=== PATIENT | male | born 1935 | race Caucasian/White ===

== ENCOUNTER 2017-10-15 09:52 | Inpatient (IN) | payer MEDICARE, OTHER ==
[2017-10-15] MEDS ORDERED: Sodium Chloride 0.9% 10 ML Syringe FLUSH PRN (10:03)
[2017-10-15 10:35] LABS: CHLORIDE,CL 105 mmol/L (98-107); SODIUM,NA 143 mmol/L (136-145)
--- NOTE | 2017-10-15 13:06 | EDM.PDOC ---
ED HPI GENERAL MEDICAL PROBLEM - General Chief Complaint: General Stated Complaint: FALL Time Seen by Provider: 10/15/17 10:06 Source of Information: Reports: Patient, Family History Limitations: Reports: No Limitations - History of Present Illness INITIAL COMMENTS - FREE TEXT/NARRATIVE: Patient was staying at local motel last night when he tried to use the bathroom. Unable to get up from the low toilet placed in the bathroom. Slid forward onto knees when he attempted to stand. Unable to get up on his own and ended up laying on the floor of the bathroom for about 6 hours until he was discovered this morning. He did have family members staying in a nearby room. Patient complains that both legs are stiff/sore from laying on ground all night. One leg was resting atop of the other. He noted more swelling that usual in the lower leg area when EMS crew sat him up. Patient feels that the swelling has already improved since arriving to ER. Denies trauma and other new complaints. Patient's plan was to move into the [facility] today and was to reside on the basic care side. He usually gets around well using his walker and was able to keep his apartment tidy as well as perform his ADLs. Bilateral Knee Pain Score (Numeric/FACES): 3 - Related Data Allergies Allergy/AdvReac Type Severity Reaction Status Date / Time No Known Allergies Allergy Verified 10/15/17 10:52 Home Meds: Home Meds Acetaminophen [Tylenol Extra Strength] 1,000 mg PO Q4H 10/15/17 [History] Ascorbic Acid [Vitamin C with Judit Hips] 500 mg PO BID 10/15/17 [History] Betamethasone/Clotrimazole [Lotrisone] 1 applic TOP ASDIRECTED 10/15/17 [History ] Bumetanide 1 mg PO BID 10/15/17 [History] Camphor/Menthol [Mentholatum Oint] 1 applic TP ASDIRECTED PRN 10/15/17 [History] Docusate Sodium [Colace] 100 mg PO DAILY 10/15/17 [History] Ferrous Sulfate [Iron] 325 mg PO DAILY 10/15/17 [History] Fluocinonide [Lidex 0.05% Crm] 1 applic TOP BID PRN 10/15/17 [History] Gabapentin [Neurontin] 300 mg PO TID 10/15/17 [History] Meclizine [Antivert] 25 mg PO Q6H PRN 10/15/17 [History] Non-Formulary Medication [NF Drug] 1 applic TOP ASDIRECTED PRN 10/15/17 [History ] Non-Formulary Medication [NF Drug] 1 each PO Q12H 10/15/17 [History] Olopatadine HCl 1 drop EYEBOTH DAILY 10/15/17 [History] Potassium Chloride [Klor-Con M20] 20 meq PO DAILY 10/15/17 [History] Pravastatin [Pravachol] 10 mg PO BEDTIME 10/15/17 [History] Warfarin [Coumadin] 5 mg PO MO@18 10/15/17 [History] Warfarin [Coumadin] 7.5 mg PO DAILY@18 10/15/17 [History] glyBURIDE [Glyburide] 5 mg PO DAILY 10/15/17 [History] metOLazone [Metolazone] 0.5 tab PO DAILY PRN 10/15/17 [History] metroNIDAZOLE [Metronidazole] 1 applic TP DAILY PRN 10/15/17 [History] predniSONE [Prednisone] 5 mg PO DAILY 10/15/17 [History] Past Medical History HEENT History: Reports: Cataract, Hard of Hearing Cardiovascular History: Reports: Afib, Blood Clots/VTE/DVT, Heart Failure ( grade 1 diastolic dysfunction, hypoxia), High Cholesterol, Hypertension, Pulmonary Hypertension, Other (See Below) (edema) Respiratory History: Reports: PE, Sleep Apnea, SOB, Other (See Below) (hypoxia) Gastrointestinal History: Reports: Other (See Below) (Dysphagia, oropharyngeal phase) Musculoskeletal History: Reports: Back Pain, Chronic, Osteoarthritis, Other ( See Below) (degenerative disc disease, right sided sciatica) Neurological History: Reports: Head Trauma, Vertigo Psychiatric History: Reports: Anxiety Endocrine/Metabolic History: Reports: Diabetes, Type II, Obesity/BMI 30+ Hematologic History: Reports: B12 Deficiency, Iron Deficiency Immunologic History: Reports: Other (See Below) (PMR) Dermatologic History: Reports: Venous Stasis Dermatitis, Other (See Below) ( Rosacea, mild pressure changes in skin of gluteal cleft nipple pain) - Past Surgical History GI Surgical History: Reports: Hernia, Abdominal ED ROS GENERAL - Review of Systems Review Of Systems: See Below Constitutional: Reports: No Symptoms HEENT: Reports: Glasses Respiratory: Reports: Shortness of Breath (chronic SOB, no acute change per patient). Denies: Pleuritic Chest Pain, Cough, Sputum, Hemoptysis Cardiovascular: Reports: Edema (chronic, see HPI). Denies: Chest Pain, Lightheadedness, Orthopnea, Palpitations, Syncope GI/Abdominal: Reports: Constipation (chronic issues), Diarrhea (occasional loose stools). Denies: Abdominal Pain, Hematemesis, Hematochezia, Nausea, Stool Incontinence : Reports: No Symptoms Musculoskeletal: Reports: Leg Pain (see HPI) Skin: Reports: Bruising Neurological: Reports: No Symptoms (denies acute changes) Psychiatric: Reports: No Symptoms ED EXAM, GENERAL - Physical Exam Exam: See Below Exam Limited By: No Limitations General Appearance: Alert, No Apparent Distress, Anxious, Obese Eye Exam: Bilateral Eye: EOMI, PERRL Ears: Normal External Exam Nose: No: Nasal Deformity, Nasal Swelling, Nasal Drainage Throat/Mouth: Normal Lips, Normal Voice, No Airway Compromise, Other (Patient wears dentures) Head: Atraumatic, Normocephalic Neck: Supple, Non-Tender, Full Range of Motion. No: Lymphadenopathy (L), Lymphadenopathy (R) Respiratory/Chest: No Respiratory Distress, No Accessory Muscle Use, Chest Non- Tender, Decreased Breath Sounds (throughout). No: Crackles, Rales, Rhonchi, Wheezing, Stridor, Accessory Muscle Use Cardiovascular: Regular Rate, Rhythm, No Murmur Peripheral Pulses: 2+: Radial (L), Radial (R) GI/Abdominal: Normal Bowel Sounds, Soft, Non-Tender, No Distention, Hernia ( ventral hernia), Mass (area of firmness in surgical scar adjacent to umbilicus on right) (Male) Exam: Other (Some areas of erythema and skin breakdown noted around groin/scrotum as and extends around pannus. ). No: Urethral Discharge Rectal (Males) Exam: Deferred Back Exam: No: CVA Tenderness (L), CVA Tenderness (R), Muscle Spasm, Paraspinal Tenderness, Vertebral Tenderness Extremities: Pedal Edema (significant edema bilateral lower legs with scattered fluid blisters noted, no obvious focal tenderness noted). No: Increased Warmth , Mottled, Pallor Neurological: Alert, Oriented, Normal Cognition, Other (appears to have equal strength bilaterally) Psychiatric: Anxious (mildly) Skin Exam: Warm, Dry, Ecchymosis (scattered, forearms/hands), Other (small skin tear left forearm) Course - Vital Signs Last Recorded V/S: Last Vital Signs Temp 36.8 C 10/15/17 09:54 Pulse 97 10/15/17 10:04 Resp 20 10/15/17 10:04 BP 151/85 H 10/15/17 10:04 Pulse Ox 90 L 10/15/17 10:04 - Orders/Labs/Meds Orders: Active Orders 24 hr Category Date Time Status Cardiac Monitoring [RC] . DIRECTED Care 10/15/17 10:03 Active Johnson Catheter Insertion [Insert Urinary Catheter] [OM. Care 10/15/17 11:45 Ordered PC] Q24H Urinary Catheter Assessment [RC] ASDIRECTED Care 10/15/17 11:44 Active Chest 1V Frontal [CR] Stat Exams 10/15/17 10:08 Taken URINALYSIS W/MICROSCOPIC [UA W/MICROSCOPIC] [URIN] Stat Lab 10/15/17 10:10 Ordered Sodium Chloride 0.9% [Saline Flush] Med 10/15/17 10:03 Active 10 ml FLUSH ASDIRECTED PRN Saline Lock Insert [OM.PC] Routine Oth 10/15/17 10:03 Ordered Medication Orders Sodium Chloride (Saline Flush) 10 ml FLUSH ASDIRECTED PRN PRN Reason: Keep Vein Open Labs: Laboratory Tests 10/15/17 10/15/17 10/15/17 Range/Units 10:00 10:00 10:00 WBC 13.6 H (4.0-10.2) K/uL RBC 5.44 H (4.33-5.41) M/uL Hgb 14.5 (13.1-16.8) g/dL Hct 47.6 (39.0-49.0) % MCV 87.5 (84.0-98.0) fL MCH 26.7 L (28.2-33.3) pg MCHC 30.5 L (31.7-36.0) g/dL RDW 22.2 H (11.2-14.1) % Plt Count 215 (150-350) K/uL Neut % (Auto) 88.3 H (45.0-80.0) % Lymph % (Auto) 1.4 L (10.0-50.0) % [place] % (Auto) 10.2 (2.0-14.0) % Eos % (Auto) 0.0 (0.0-5.0) % Baso % (Auto) 0.1 (0.0-2.0) % Neut # (Auto) 12.04 H (1.40-7.00) K/uL Lymph # (Auto) 0.19 L (0.50-3.50) K/uL [place] # (Auto) 1.39 H (0.00-1.00) K/uL Eos # (Auto) 0.00 (0.00-0.50) K/uL Baso # (Auto) 0.02 (0.00-0.20) K/uL PT 12.5 H (9.8-11.7) SEC INR 1.2 Sodium 143 (136-145) mmol/L Potassium 3.9 (3.5-5.1) mmol/L Chloride 105 (98-107) mmol/L Carbon Dioxide 28.4 (21.0-32.0) mmol/L BUN 13 (7-18) mg/dL Creatinine 0.79 (0.51-1.17) mg/dL Est Cr Clr Drug Dosing 70.85 mL/min Estimated GFR (MDRD) > 60 mL/min Glucose 141 H (74-106) mg/dL Calcium 8.7 (8.5-10.1) mg/dL Total Bilirubin 2.6 H (0.2-1.0) mg/dL AST 101 H (15-37) U/L ALT 28 (12-78) U/L Alkaline Phosphatase 87 (46-116) IU/L NT-Pro-B Natriuret Pep 9423 H (0-125) pg/mL Total Protein 6.7 (6.4-8.2) g/dL Albumin 3.2 L (3.4-5.0) g/dL Specimen Type Urine Color Urine Appearance Urine pH (5.0-9.0) Ur Specific [place] (1.005-1.030) Urine Protein (NEGATIVE) mg/dL Urine Glucose (UA) (NEGATIVE) mg/dL Urine Ketones (NEGATIVE) mg/dL Urine Occult Blood (NEGATIVE) Urine Nitrite (NEGATIVE) Urine Bilirubin (NEGATIVE) Urine Urobilinogen (0.2-1.0) E.U./dL Ur Leukocyte Esterase (NEGATIVE) Urine RBC /HPF Urine WBC /HPF Ur Epithelial Cells /LPF Urine Bacteria (NONE TO FEW) /HPF 10/15/17 Range/Units 10:10 WBC (4.0-10.2) K/uL RBC (4.33-5.41) M/uL Hgb (13.1-16.8) g/dL Hct (39.0-49.0) % MCV (84.0-98.0) fL MCH (28.2-33.3) pg MCHC (31.7-36.0) g/dL RDW (11.2-14.1) % Plt Count (150-350) K/uL Neut % (Auto) (45.0-80.0) % Lymph % (Auto) (10.0-50.0) % [place] % (Auto) (2.0-14.0) % Eos % (Auto) (0.0-5.0) % Baso % (Auto) (0.0-2.0) % Neut # (Auto) (1.40-7.00) K/uL Lymph # (Auto) (0.50-3.50) K/uL [place] # (Auto) (0.00-1.00) K/uL Eos # (Auto) (0.00-0.50) K/uL Baso # (Auto) (0.00-0.20) K/uL PT (9.8-11.7) SEC INR Sodium (136-145) mmol/L Potassium (3.5-5.1) mmol/L Chloride (98-107) mmol/L Carbon Dioxide (21.0-32.0) mmol/L BUN (7-18) mg/dL Creatinine (0.51-1.17) mg/dL Est Cr Clr Drug Dosing mL/min Estimated GFR (MDRD) mL/min Glucose (74-106) mg/dL Calcium (8.5-10.1) mg/dL Total Bilirubin (0.2-1.0) mg/dL AST (15-37) U/L ALT (12-78) U/L Alkaline Phosphatase (46-116) IU/L NT-Pro-B Natriuret Pep (0-125) pg/mL Total Protein (6.4-8.2) g/dL Albumin (3.4-5.0) g/dL Specimen Type Urinvoid Urine Color Dark yellow Urine Appearance Clear Urine pH 7.0 (5.0-9.0) Ur Specific [place] 1.020 (1.005-1.030) Urine Protein 30 H (NEGATIVE) mg/dL Urine Glucose (UA) Negative (NEGATIVE) mg/dL Urine Ketones 40 H (NEGATIVE) mg/dL Urine Occult Blood Large H (NEGATIVE) Urine Nitrite Negative (NEGATIVE) Urine Bilirubin Small H (NEGATIVE) Urine Urobilinogen 1.0 (0.2-1.0) E.U./dL Ur Leukocyte Esterase Negative (NEGATIVE) Urine RBC 20-30 H /HPF Urine WBC 0-5 /HPF Ur Epithelial Cells Rare /LPF Urine Bacteria Few (NONE TO FEW) /HPF Meds: Medications Generic Name Dose Route Start Last Admin Trade Name Freq PRN Reason Stop Dose Admin Sodium Chloride 10 ml 10/15/17 10:03 Saline Flush FLUSH ASDIRECTED PRN Keep Vein Open - Radiology Interpretation Free Text/Narrative:: Changes consistent with CHF noted on xray. - Re-Assessments/Exams Free Text/Narrative Re-Assessment/Exam: Mild elevation of WBC. Decreased MCH, increased RDW. INR subtheraputic at 1.2 Glu 141 Bili 2.6, AST 101 ProBNP 9423 Alb 3.2 Patient's O2 sats on room air hovering around 80. Not on home O2 per patient. Several small areas of skin breakdown in edematous area lower legs showed increased erythema. Will cover for potential infection with Keflex. Will admit for CHF/hypoxia as well as continued observation of lower extremities given the fall last night/lying on floor. Diuresis planned. No evidence of compartment syndrome at this time. Will have PT and OT assess patient. Anticipate 3-4 days of inpatient stay. May need to go swingbed after discharge if he requires additional PT or admission to skilled bed at [facility]. If things go well, anticipate discharge and patient will be able to report to independent care side of [facility] as was originally planned. Call placed to [facility] and spoke to Julien. Patient is covered by Medicare and was able to chose between transfer to [facility] or staying here in [place]. Patient chose to be admitted here to our facility. Departure - Departure Time of Disposition: 13:30 Disposition: Admitted As Inpatient 65 Condition: Good Clinical Impression: Hypoxia Fall Qualifiers: Encounter type: initial encounter Qualified Code(s): W19.XXXA - Unspecified fall, initial encounter CHF (congestive heart failure) Qualifiers: Heart failure type: diastolic Heart failure chronicity: chronic Qualified Code( s): I50.32 - Chronic diastolic (congestive) heart failure - Discharge Information - Problem List & Annotations (1) Fall SNOMED Code(s): 8550187, 808595898 Code(s): W19.XXXA - UNSPECIFIED FALL, INITIAL ENCOUNTER Status: Acute Priority: High Current Visit: Yes Qualifiers: Encounter type: initial encounter Qualified Code(s): W19.XXXA - Unspecified fall, initial encounter (2) Hypoxia SNOMED Code(s): 104075536 Code(s): R09.02 - HYPOXEMIA Status: Chronic Priority: High Current Visit: Yes Annotation/Comment:: Chronic issue per available records. Will observe while inpatient and determine if home O2 at time of discharge is warrented. (3) CHF (congestive heart failure) SNOMED Code(s): 53316298 Code(s): I50.9 - HEART FAILURE, UNSPECIFIED Status: Chronic Priority: Medium Current Visit: Yes Annotation/Comment:: Has been worked up for this in past by primary provider in [facility]. Unknown when last echo. Qualifiers: Heart failure type: diastolic Heart failure chronicity: chronic Qualified Code(s): I50.32 - Chronic diastolic (congestive) heart failure (4) Diabetes SNOMED Code(s): 65855241 Code(s): E11.9 - TYPE 2 DIABETES MELLITUS WITHOUT COMPLICATIONS Status: Chronic Priority: Low Current Visit: No Qualifiers: Diabetes mellitus type: type 2 Diabetes mellitus halfway insulin use: without emt intermediate use Diabetes mellitus complication status: with unspecified complications Qualified Code(s): E11.8 - Type 2 diabetes mellitus with unspecified complications (5) Weakness SNOMED Code(s): 77014300 Code(s): R53.1 - WEAKNESS Status: Chronic Priority: Medium Current Visit: Yes (6) PMR (polymyalgia rheumatica) SNOMED Code(s): 99486642 Code(s): M35.3 - POLYMYALGIA RHEUMATICA Status: Chronic Priority: Low Current Visit: No (7) Edema extremities SNOMED Code(s): 829050084 Code(s): R60.0 - LOCALIZED EDEMA Status: Chronic Priority: Medium Current Visit: Yes (8) Stasis dermatitis of both legs SNOMED Code(s): 34736642 Code(s): I87.2 - VENOUS INSUFFICIENCY (CHRONIC) (PERIPHERAL) Status: Chronic Priority: Medium Current Visit: Yes Annotation/Comment:: Possible mild infections noted where skin has broken down in these areas. (9) Subtherapeutic anticoagulation SNOMED Code(s): 54976398 Code(s): Z51.81 - ENCOUNTER FOR THERAPEUTIC DRUG LEVEL MONITORING; Z79.01 - FPC (CURRENT) USE OF ANTICOAGULANTS Status: Acute Current Visit: Yes Annotation/Comment:: History of Afib/chronic anticoagulation. Uncertain if patient has been compliant with medication regimen. - Problem List Review Problem List Initiated/Reviewed/Updated: Yes - My Orders Last 24 Hours: My Active Orders 10/15/17 10:03 Cardiac Monitoring [RC] . DIRECTED Sodium Chloride 0.9% [Saline Flush] 10 ml FLUSH ASDIRECTED PRN Saline Lock Insert [OM.PC] Routine 10/15/17 10:08 Chest 1V Frontal [CR] Stat 10/15/17 10:10 URINALYSIS W/MICROSCOPIC [UA W/MICROSCOPIC] [URIN] Stat 10/15/17 11:44 Urinary Catheter Assessment [RC] ASDIRECTED 10/15/17 11:45 Johnson Catheter Insertion [Insert Urinary Catheter] [OM.PC] Q24H - Assessment/Plan Admission H&P: Please use this note as an admission H&P Last 24 Hours: My Active Orders 10/15/17 10:03 Cardiac Monitoring [RC] . DIRECTED Sodium Chloride 0.9% [Saline Flush] 10 ml FLUSH ASDIRECTED PRN Saline Lock Insert [OM.PC] Routine 10/15/17 10:08 Chest 1V Frontal [CR] Stat 10/15/17 10:10 URINALYSIS W/MICROSCOPIC [UA W/MICROSCOPIC] [URIN] Stat 10/15/17 11:44 Urinary Catheter Assessment [RC] ASDIRECTED 10/15/17 11:45 Johnson Catheter Insertion [Insert Urinary Catheter] [OM.PC] Q24H Assessment:: as above Plan: as above
[2017-10-15] MEDS ORDERED: Temazepam 15 MG Cap PO PRN (15:17)
[2017-10-15] MEDS ORDERED: Bisacodyl 5 MG Tab PO PRN (15:17)
[2017-10-15] MEDS ORDERED: METRONIDAZOLE TP PRN (15:24)
[2017-10-15] MEDS ORDERED: [UNRECOGNIZED DRUG - OTHER] TOP PRN (15:24)
[2017-10-15] MEDS ORDERED: Betamethasone Dipropionate/Clotrimazole 0.05-1% Crm 15 GM Tube TOP PRN (15:30)
[2017-10-15] MEDS ORDERED: Acetaminophen 325 MG Tab PO PRN (16:00)
[2017-10-15] MEDS ORDERED: Ondansetron 4 MG Tab.DIS PO PRN (16:00)
[2017-10-15] MEDS ORDERED: Meclizine 25 MG Tab PO PRN (16:00)
[2017-10-15] MEDS ORDERED: Ondansetron 4 MG/2 ML SDV IVPUSH PRN (16:00)
[2017-10-15] MEDS: Furosemide 20 MG/2 ML VIAL IVPUSH SCH (16:39)
[2017-10-15] MEDS: glyBURIDE 5 MG Tab PO SCH (17:18)
[2017-10-15] MEDS: Gabapentin 300 MG Cap PO SCH (17:19)
[2017-10-15] MEDS ORDERED: WARFARIN 7.5 MG PO SCH (18:00)
[2017-10-15] MEDS ORDERED: Warfarin 5 MG Tab PO SCH (18:00)
[2017-10-15] MEDS ORDERED: Warfarin 2.5 MG Tab PO SCH (18:00)
[2017-10-15] MEDS ORDERED: Calcium Polycarbophil 625 MG Tab PO SCH (20:00)
[2017-10-15] MEDS: Ketotifen 0.025% Ophth Soln 5 ML Bottle EYEBOTH SCH (21:00)
[2017-10-15] MEDS: Cephalexin 250 MG Cap PO SCH (21:00)
[2017-10-15] MEDS: Calcium Polycarbophil 625 MG Tab PO SCH (21:07)
[2017-10-16] MEDS: Ketotifen 0.025% Ophth Soln 5 ML Bottle EYEBOTH SCH (07:24)
[2017-10-16] MEDS: Gabapentin 300 MG Cap PO SCH ×2 (07:51→11:25)
[2017-10-16] MEDS: Cephalexin 250 MG Cap PO SCH ×2 (07:51→14:05)
[2017-10-16] MEDS: Furosemide 20 MG/2 ML VIAL IVPUSH SCH (07:52)
[2017-10-16] MEDS: Calcium Polycarbophil 625 MG Tab PO SCH (07:58)
[2017-10-16] MEDS ORDERED: Docusate Sodium 100 MG Cap PO SCH (08:00)
[2017-10-16] MEDS ORDERED: predniSONE 5 MG Tab PO SCH (08:00)
[2017-10-16] MEDS ORDERED: Potassium Chloride 20 MEQ Tab.ER PO SCH (08:00)
[2017-10-16] MEDS ORDERED: Ferrous Sulfate 325 MG Tab PO SCH (08:00)
[2017-10-16] MEDS: glyBURIDE 5 MG Tab PO SCH (08:01)
[2017-10-16 13:15] LABS: CHLORIDE,CL 108 mmol/L (98-107); SODIUM,NA 141 mmol/L (136-145)
[2017-10-16] MEDS ORDERED: Dextrose 5%-0.9% NaCl 1,000 ML IV SCH ×2 (14:00→16:00)
[2017-10-16] MEDS ORDERED: 50% Dextrose in Water 50 ML Syringe IVPUSH ONE (14:02)
--- NOTE | 2017-10-16 16:45 | PCM.PN ---
- General Info Date of Service: 10/16/17 Admission Dx/Problem (Free Text): Fall CHF A-fib Functional Status: Reports: New Symptoms (Unresponsive except for facial grimace with deep sternal rub) - Review of Systems General: Reports: No Symptoms HEENT: Reports: No Symptoms Pulmonary: Reports: No Symptoms Cardiovascular: Reports: No Symptoms Gastrointestinal: Reports: No Symptoms Genitourinary: Reports: No Symptoms Musculoskeletal: Reports: No Symptoms Skin: Reports: No Symptoms Neurological: Reports: No Symptoms Psychiatric: Reports: No Symptoms - Patient Data Vitals - Most Recent: Last Vital Signs Temp 97.4 F 10/16/17 16:00 Pulse 97 10/16/17 16:00 Resp 16 10/16/17 16:00 BP 88/52 L 10/16/17 16:00 Pulse Ox 93 L 10/16/17 16:00 Weight - Most Recent: 259 lb 14.4 oz I&O - Last 24 Hours: Intake & Output 10/16/17 10/16/17 10/16/17 06:59 14:59 22:59 Intake Total 840 Output Total 175 200 Balance -175 640 Lab Results Last 24 Hours: Laboratory Results - last 24 hr 10/15/17 10/15/17 10/16/17 Range/Units 17:15 21:16 06:21 WBC (4.0-10.2) K/uL RBC (4.33-5.41) M/uL Hgb (13.1-16.8) g/dL Hct (39.0-49.0) % MCV (84.0-98.0) fL MCH (28.2-33.3) pg MCHC (31.7-36.0) g/dL RDW (11.2-14.1) % Plt Count (150-350) K/uL Neut % (Auto) (45.0-80.0) % Lymph % (Auto) (10.0-50.0) % Starr % (Auto) (2.0-14.0) % Eos % (Auto) (0.0-5.0) % Baso % (Auto) (0.0-2.0) % Neut # (Auto) (1.40-7.00) K/uL Lymph # (Auto) (0.50-3.50) K/uL Starr # (Auto) (0.00-1.00) K/uL Eos # (Auto) (0.00-0.50) K/uL Baso # (Auto) (0.00-0.20) K/uL PT (9.8-11.7) SEC INR Sodium (136-145) mmol/L Potassium (3.5-5.1) mmol/L Chloride (98-107) mmol/L Carbon Dioxide (21.0-32.0) mmol/L BUN (7-18) mg/dL Creatinine (0.51-1.17) mg/dL Est Cr Clr Drug Dosing mL/min Estimated GFR (MDRD) mL/min Glucose (74-106) mg/dL POC Glucose 113 H 79 49 L* (65-110) mg/dl Calcium (8.5-10.1) mg/dL Total Bilirubin (0.2-1.0) mg/dL AST (15-37) U/L ALT (12-78) U/L Alkaline Phosphatase (46-116) IU/L Creatine Kinase (26-308) U/L Creatine Kinase Index (0.0-2.5) % CK-MB (CK-2) (0.00-3.60) ng/mL C-Reactive Protein (<=0.9) mg/dL NT-Pro-B Natriuret Pep (0-125) pg/mL Total Protein (6.4-8.2) g/dL Albumin (3.4-5.0) g/dL 10/16/17 10/16/17 10/16/17 Range/Units 06:58 11:30 12:44 WBC (4.0-10.2) K/uL RBC (4.33-5.41) M/uL Hgb (13.1-16.8) g/dL Hct (39.0-49.0) % MCV (84.0-98.0) fL MCH (28.2-33.3) pg MCHC (31.7-36.0) g/dL RDW (11.2-14.1) % Plt Count (150-350) K/uL Neut % (Auto) (45.0-80.0) % Lymph % (Auto) (10.0-50.0) % Starr % (Auto) (2.0-14.0) % Eos % (Auto) (0.0-5.0) % Baso % (Auto) (0.0-2.0) % Neut # (Auto) (1.40-7.00) K/uL Lymph # (Auto) (0.50-3.50) K/uL Starr # (Auto) (0.00-1.00) K/uL Eos # (Auto) (0.00-0.50) K/uL Baso # (Auto) (0.00-0.20) K/uL PT (9.8-11.7) SEC INR Sodium (136-145) mmol/L Potassium (3.5-5.1) mmol/L Chloride (98-107) mmol/L Carbon Dioxide (21.0-32.0) mmol/L BUN (7-18) mg/dL Creatinine (0.51-1.17) mg/dL Est Cr Clr Drug Dosing mL/min Estimated GFR (MDRD) mL/min Glucose (74-106) mg/dL POC Glucose 65 80 77 (65-110) mg/dl Calcium (8.5-10.1) mg/dL Total Bilirubin (0.2-1.0) mg/dL AST (15-37) U/L ALT (12-78) U/L Alkaline Phosphatase (46-116) IU/L Creatine Kinase (26-308) U/L Creatine Kinase Index (0.0-2.5) % CK-MB (CK-2) (0.00-3.60) ng/mL C-Reactive Protein (<=0.9) mg/dL NT-Pro-B Natriuret Pep (0-125) pg/mL Total Protein (6.4-8.2) g/dL Albumin (3.4-5.0) g/dL 10/16/17 10/16/17 10/16/17 Range/Units 12:45 12:45 12:45 WBC 10.7 H (4.0-10.2) K/uL RBC 5.09 (4.33-5.41) M/uL Hgb 13.3 (13.1-16.8) g/dL Hct 46.7 (39.0-49.0) % MCV 91.7 D (84.0-98.0) fL MCH 26.1 L (28.2-33.3) pg MCHC 28.5 L (31.7-36.0) g/dL RDW 22.4 H (11.2-14.1) % Plt Count 164 (150-350) K/uL Neut % (Auto) 86.1 H (45.0-80.0) % Lymph % (Auto) 4.0 L (10.0-50.0) % Starr % (Auto) 9.6 (2.0-14.0) % Eos % (Auto) 0.1 (0.0-5.0) % Baso % (Auto) 0.2 (0.0-2.0) % Neut # (Auto) 9.23 H (1.40-7.00) K/uL Lymph # (Auto) 0.43 L (0.50-3.50) K/uL Starr # (Auto) 1.03 H (0.00-1.00) K/uL Eos # (Auto) 0.01 (0.00-0.50) K/uL Baso # (Auto) 0.02 (0.00-0.20) K/uL PT 12.6 H (9.8-11.7) SEC INR 1.2 Sodium 141 (136-145) mmol/L Potassium 4.3 (3.5-5.1) mmol/L Chloride 108 H (98-107) mmol/L Carbon Dioxide 31.4 (21.0-32.0) mmol/L BUN 13 (7-18) mg/dL Creatinine 0.91 (0.51-1.17) mg/dL Est Cr Clr Drug Dosing 61.51 mL/min Estimated GFR (MDRD) > 60 mL/min Glucose 73 L (74-106) mg/dL POC Glucose (65-110) mg/dl Calcium 8.1 L (8.5-10.1) mg/dL Total Bilirubin 1.2 H (0.2-1.0) mg/dL AST 179 H (15-37) U/L ALT 46 (12-78) U/L Alkaline Phosphatase 67 (46-116) IU/L Creatine Kinase (26-308) U/L Creatine Kinase Index (0.0-2.5) % CK-MB (CK-2) (0.00-3.60) ng/mL C-Reactive Protein 10.3 H (<=0.9) mg/dL NT-Pro-B Natriuret Pep 7783 H (0-125) pg/mL Total Protein 5.5 L (6.4-8.2) g/dL Albumin 1.9 L (3.4-5.0) g/dL 10/16/17 10/16/17 10/16/17 Range/Units 12:45 13:59 14:37 WBC (4.0-10.2) K/uL RBC (4.33-5.41) M/uL Hgb (13.1-16.8) g/dL Hct (39.0-49.0) % MCV (84.0-98.0) fL MCH (28.2-33.3) pg MCHC (31.7-36.0) g/dL RDW (11.2-14.1) % Plt Count (150-350) K/uL Neut % (Auto) (45.0-80.0) % Lymph % (Auto) (10.0-50.0) % Starr % (Auto) (2.0-14.0) % Eos % (Auto) (0.0-5.0) % Baso % (Auto) (0.0-2.0) % Neut # (Auto) (1.40-7.00) K/uL Lymph # (Auto) (0.50-3.50) K/uL Starr # (Auto) (0.00-1.00) K/uL Eos # (Auto) (0.00-0.50) K/uL Baso # (Auto) (0.00-0.20) K/uL PT (9.8-11.7) SEC INR Sodium (136-145) mmol/L Potassium (3.5-5.1) mmol/L Chloride (98-107) mmol/L Carbon Dioxide (21.0-32.0) mmol/L BUN (7-18) mg/dL Creatinine (0.51-1.17) mg/dL Est Cr Clr Drug Dosing mL/min Estimated GFR (MDRD) mL/min Glucose (74-106) mg/dL POC Glucose 59 L 98 (65-110) mg/dl Calcium (8.5-10.1) mg/dL Total Bilirubin (0.2-1.0) mg/dL AST (15-37) U/L ALT (12-78) U/L Alkaline Phosphatase (46-116) IU/L Creatine Kinase 2738 H (26-308) U/L Creatine Kinase Index 0.4 (0.0-2.5) % CK-MB (CK-2) 12.00 H* (0.00-3.60) ng/mL C-Reactive Protein (<=0.9) mg/dL NT-Pro-B Natriuret Pep (0-125) pg/mL Total Protein (6.4-8.2) g/dL Albumin (3.4-5.0) g/dL 10/16/17 Range/Units 15:35 WBC (4.0-10.2) K/uL RBC (4.33-5.41) M/uL Hgb (13.1-16.8) g/dL Hct (39.0-49.0) % MCV (84.0-98.0) fL MCH (28.2-33.3) pg MCHC (31.7-36.0) g/dL RDW (11.2-14.1) % Plt Count (150-350) K/uL Neut % (Auto) (45.0-80.0) % Lymph % (Auto) (10.0-50.0) % Starr % (Auto) (2.0-14.0) % Eos % (Auto) (0.0-5.0) % Baso % (Auto) (0.0-2.0) % Neut # (Auto) (1.40-7.00) K/uL Lymph # (Auto) (0.50-3.50) K/uL Starr # (Auto) (0.00-1.00) K/uL Eos # (Auto) (0.00-0.50) K/uL Baso # (Auto) (0.00-0.20) K/uL PT (9.8-11.7) SEC INR Sodium (136-145) mmol/L Potassium (3.5-5.1) mmol/L Chloride (98-107) mmol/L Carbon Dioxide (21.0-32.0) mmol/L BUN (7-18) mg/dL Creatinine (0.51-1.17) mg/dL Est Cr Clr Drug Dosing mL/min Estimated GFR (MDRD) mL/min Glucose (74-106) mg/dL POC Glucose 114 H (65-110) mg/dl Calcium (8.5-10.1) mg/dL Total Bilirubin (0.2-1.0) mg/dL AST (15-37) U/L ALT (12-78) U/L Alkaline Phosphatase (46-116) IU/L Creatine Kinase (26-308) U/L Creatine Kinase Index (0.0-2.5) % CK-MB (CK-2) (0.00-3.60) ng/mL C-Reactive Protein (<=0.9) mg/dL NT-Pro-B Natriuret Pep (0-125) pg/mL Total Protein (6.4-8.2) g/dL Albumin (3.4-5.0) g/dL Med Orders - Current: Current Medications Acetaminophen (Tylenol) 650 mg PO Q4H PRN PRN Reason: Pain (Mild 1-3)/fever Last Admin: 10/16/17 07:59 Dose: 650 mg Betamethasone/Clotrimazole (Lotrisone) 1 gm TOP ASDIRECTED PRN PRN Reason: RASH Bisacodyl (Dulcolax) 5 mg PO DAILY PRN PRN Reason: Constipation Calcium Polycarbophil (Fibercon) 625 mg PO Q12HR [facility] Last Admin: 10/16/17 07:58 Dose: 625 mg Cephalexin (Keflex) 500 mg PO Q8H [facility] Last Admin: 10/16/17 14:05 Dose: Not Given Docusate Sodium (Colace) 100 mg PO DAILY [facility] Last Admin: 10/16/17 08:00 Dose: 100 mg Ferrous Sulfate (Ferrous Sulfate) 325 mg PO DAILY [facility] Last Admin: 10/16/17 08:00 Dose: 325 mg Furosemide (Lasix) 20 mg IVPUSH DAILY [facility] Last Admin: 10/16/17 07:52 Dose: 20 mg Gabapentin (Neurontin) 300 mg PO TID [facility] Last Admin: 10/16/17 11:25 Dose: 300 mg Dextrose/Sodium Chloride (Dextrose 5%-Normal Saline) 1,000 mls @ 75 mls/hr IV ASDIRECTED [facility] Stop: 10/17/17 03:19 Last Admin: 10/16/17 14:20 Dose: 75 mls/hr Dextrose/Sodium Chloride (Dextrose 5%-Normal Saline) 1,000 mls @ 150 mls/hr IV ASDIRECTED [facility] Stop: 10/16/17 18:01 Ketotifen Fumarate (Ketotifen 0.025% Ophth Soln) 1 ml EYEBOTH Q12HR [facility] Last Admin: 10/16/17 07:24 Dose: 1 drop Meclizine HCl (Antivert) 25 mg PO Q6H PRN PRN Reason: Dizziness Metronidazole [ Metronidazole] Topical 1 applic TP DAILY PRN PRN Reason: skin irritation Blue Emu Oil Nf 1 each TOP ASDIRECTED PRN PRN Reason: as needed for skin care Ondansetron HCl (Zofran Odt) 4 mg PO Q6H PRN PRN Reason: Nausea/Vomiting Ondansetron HCl (Zofran) 4 mg IVPUSH Q6H PRN PRN Reason: Nausea/Vomiting Potassium Chloride (Klor-Con M20) 20 meq PO DAILY [facility] Last Admin: 10/16/17 07:58 Dose: 20 meq Prednisone (Prednisone) 5 mg PO DAILY [facility] Last Admin: 10/16/17 07:51 Dose: 5 mg Sodium Chloride (Saline Flush) 10 ml FLUSH ASDIRECTED PRN PRN Reason: Keep Vein Open Last Admin: 10/15/17 21:07 Dose: 10 ml Temazepam (Restoril) 15 mg PO BEDTIME PRN PRN Reason: Sleep Warfarin Sodium (Coumadin) 2.5 mg PO DAILY@1800 [facility] Last Admin: 10/15/17 17:18 Dose: 2.5 mg Warfarin Sodium (Coumadin) 5 mg PO DAILY@1800 [facility] Last Admin: 10/15/17 17:18 Dose: 5 mg Discontinued Medications Calcium Polycarbophil (Fibercon) 1 mg PO Q12HR [facility] Last Admin: 10/15/17 23:44 Dose: Not Given Dextrose/Water (Dextrose 50% In Water) 50 ml IVPUSH ONETIME ONE Stop: 10/16/17 14:03 Last Admin: 10/16/17 14:14 Dose: 50 ml Glyburide (Micronase) 5 mg PO DAILY [facility] Last Admin: 10/16/17 08:01 Dose: 5 mg - Exam Quality Assessment: Supplemental Oxygen General: Obtunded Neck: Trachea Midline Lungs: Decreased Breath Sounds Cardiovascular: Irregular Rhythm GI/Abdominal Exam: Normal Bowel Sounds, Soft (Male) Exam: Deferred Extremities: Pedal Edema Skin: Warm, Dry, Intact Neurological: Other (Unresponsive except for facial grimace with deep sternal rub.) Psy/Mental Status: Other (Unresponsive) EKG INTERPRETATION EKG Date: 10/16/17 Rhythm: Other (sinus rhythm with 1st degree AV block and occ PVC's) [place]: LAD-Left [place] Deviation P-Wave: Present Comparison: NA - No Prior EKG - Problem List Review Problem List Initiated/Reviewed/Updated: Yes - My Orders Last 24 Hours: My Active Orders 10/16/17 14:00 Dextrose 5%-0.9% NaCl [Dextrose 5%-Normal Saline] 1,000 ml IV ASDIRECTED 10/16/17 14:30 Accu Check [Blood Glucose Check, Bedside] [RC] ONETIME 10/16/17 14:47 EKG Documentation Completion [RC] ASDIRECTED 10/16/17 16:00 Dextrose 5%-Normal Saline @ 150 MLS/HR(1000ml) Dextrose 5%-0.9% NaCl [Dextrose 5 %-Normal Saline] 1,000 ml IV ASDIRECTED 10/16/17 16:18 Head wo Cont [CT] Routine 10/16/17 16:35 Communication Order [RC] STAT 10/17/17 05:11 C-REACTIVE PROTEIN [CHEM] AM CK W CKMB [CHEM] Routine TROPONIN I [CHEM] Routine TSH ULTRASENSITIVE [CHEM] Routine 10/18/17 05:11 C-REACTIVE PROTEIN [CHEM] AM - Plan Plan:: 10-16-17 Paula Alva PA-C Patient has deteriorated over the course of the afternoon. Hypoglycemia noted and glyburide had been DC'd, been very lethargic with a BS of low 50's and was given D50W and sugars improved and mental status briefly improved. BP low and IV D5NS had been started but BP continued to drop and patient became unresponsive except for facial grimace to very deep sternal rub. Called daughter to report decline in condition and she agrees with transfer to a higher level of care. Woods contacted via the [facility] [employer] system and he is accepted for a direct admit, I spoke with Adan Crocker and Teresa. They did want IV fluid bolused for one liter. Head CT scan done while arrangements were being made for transfer. Dayron Simon also notified.
--- NOTE | 2017-10-16 16:56 | PCM.DCSUM1 ---
Discharge Summary - Hospital Course HPI Initial Comments: Patient was admitted yesterday after initial evaluation in the ER, after family found on the floor in motel room with h/o laying on the floor for approximately six hours after a fall. Diagnosis: Stroke: No - Discharge Data Discharge Date: 10/16/17 Discharge Disposition: DC/Tfer to Acute Hospital 02 Condition: Poor - Patient Summary/Data Consults: Consultations 10/15/17 15:17 OT Evaluation and Treatment [CONS] Routine PT Evaluation and Treatment [CONS] Routine Hospital Course: On this day after admission patient was sore this morning but was out of bed with assist of lift and could stand and was conversant. C/o "sore", especially back and butt pain but had denied CP. He was relatively hypoglycemic and glyburide was DC'd. BS even lower this afternoon and D50W given. IV fluids started for hypotension, however BP continued to drop as well as level of consciousness. On my exam he was essentially unresponsive to me, with the exception of a facial grimace with deep sternal rub and the decision was made to transfer to a higher level of care. - Patient Instructions Diet: NPO - Discharge Plan *PRESCRIPTION DRUG MONITORING PROGRAM REVIEWED*: Not Applicable *COPY OF PRESCRIPTION DRUG MONITORING REPORT IN PATIENT ALBARO: Not Applicable Home Medications: Home Meds Acetaminophen [Tylenol Extra Strength] 1,000 mg PO Q4H 10/15/17 [History] Ascorbic Acid [Vitamin C with Judit Hips] 500 mg PO BID 10/15/17 [History] Betamethasone/Clotrimazole [Lotrisone] 1 applic TOP ASDIRECTED PRN 10/15/17 [ History] Bumetanide 1 mg PO BID 10/15/17 [History] Camphor/Menthol [Mentholatum Oint] 1 applic TP ASDIRECTED PRN 10/15/17 [History] Docusate Sodium [Colace] 100 mg PO DAILY 10/15/17 [History] Ferrous Sulfate [Iron] 325 mg PO DAILY 10/15/17 [History] Fluocinonide [Lidex 0.05% Crm] 1 applic TOP BID PRN 10/15/17 [History] Gabapentin [Neurontin] 300 mg PO TID 10/15/17 [History] Meclizine [Antivert] 25 mg PO Q6H PRN 10/15/17 [History] Non-Formulary Medication [NF Drug] 1 applic TOP ASDIRECTED PRN 10/15/17 [History ] Non-Formulary Medication [NF Drug] 1 each PO Q12H 10/15/17 [History] Olopatadine HCl 1 drop EYEBOTH DAILY 10/15/17 [History] Potassium Chloride [Klor-Con M20] 20 meq PO DAILY 10/15/17 [History] Pravastatin [Pravachol] 10 mg PO BEDTIME 10/15/17 [History] Warfarin [Coumadin] 5 mg PO MO@18 10/15/17 [History] Warfarin [Coumadin] 7.5 mg PO DAILY@18 10/15/17 [History] glyBURIDE [Glyburide] 5 mg PO DAILY 10/15/17 [History] metOLazone [Metolazone] 0.5 tab PO DAILY PRN 10/15/17 [History] metroNIDAZOLE [Metronidazole] 1 applic TP DAILY PRN 10/15/17 [History] predniSONE [Prednisone] 5 mg PO DAILY 10/15/17 [History] Patient Handouts: Furosemide injection, Hypoxemia, Ondansetron injection, Cephalexin tablets or capsules, Heart Failure, [id number] Forms: ED Department Discharge Referrals: PCP,Unknown [Primary Care Provider] - - Discharge Summary/Plan Comment DC Time >30 min.: Yes Discharge Summary/Plan Comment: Daughter Shanthi contacted who agreed with transfer to a larger facility with a higher level of care. Contacted [facility] and after consult with Dr.'s Crocker and Teresa patient accepted for direct admit. - Patient Data Vitals - Most Recent: Last Vital Signs Temp 97.4 F 10/16/17 16:00 Pulse 97 10/16/17 16:00 Resp 16 10/16/17 16:00 BP 88/52 L 10/16/17 16:00 Pulse Ox 93 L 10/16/17 16:00 Weight - Most Recent: 259 lb 14.4 oz I&O - Last 24 hours: Intake & Output 10/16/17 10/16/17 10/16/17 06:59 14:59 22:59 Intake Total 840 Output Total 175 200 Balance -175 640 Lab Results - Last 24 hrs: Laboratory Results - last 24 hr 10/15/17 10/15/17 10/16/17 Range/Units 17:15 21:16 06:21 WBC (4.0-10.2) K/uL RBC (4.33-5.41) M/uL Hgb (13.1-16.8) g/dL Hct (39.0-49.0) % MCV (84.0-98.0) fL MCH (28.2-33.3) pg MCHC (31.7-36.0) g/dL RDW (11.2-14.1) % Plt Count (150-350) K/uL Neut % (Auto) (45.0-80.0) % Lymph % (Auto) (10.0-50.0) % [place] % (Auto) (2.0-14.0) % Eos % (Auto) (0.0-5.0) % Baso % (Auto) (0.0-2.0) % Neut # (Auto) (1.40-7.00) K/uL Lymph # (Auto) (0.50-3.50) K/uL [place] # (Auto) (0.00-1.00) K/uL Eos # (Auto) (0.00-0.50) K/uL Baso # (Auto) (0.00-0.20) K/uL PT (9.8-11.7) SEC INR Sodium (136-145) mmol/L Potassium (3.5-5.1) mmol/L Chloride (98-107) mmol/L Carbon Dioxide (21.0-32.0) mmol/L BUN (7-18) mg/dL Creatinine (0.51-1.17) mg/dL Est Cr Clr Drug Dosing mL/min Estimated GFR (MDRD) mL/min Glucose (74-106) mg/dL POC Glucose 113 H 79 49 L* (65-110) mg/dl Calcium (8.5-10.1) mg/dL Total Bilirubin (0.2-1.0) mg/dL AST (15-37) U/L ALT (12-78) U/L Alkaline Phosphatase (46-116) IU/L Creatine Kinase (26-308) U/L Creatine Kinase Index (0.0-2.5) % CK-MB (CK-2) (0.00-3.60) ng/mL C-Reactive Protein (<=0.9) mg/dL NT-Pro-B Natriuret Pep (0-125) pg/mL Total Protein (6.4-8.2) g/dL Albumin (3.4-5.0) g/dL 10/16/17 10/16/17 10/16/17 Range/Units 06:58 11:30 12:44 WBC (4.0-10.2) K/uL RBC (4.33-5.41) M/uL Hgb (13.1-16.8) g/dL Hct (39.0-49.0) % MCV (84.0-98.0) fL MCH (28.2-33.3) pg MCHC (31.7-36.0) g/dL RDW (11.2-14.1) % Plt Count (150-350) K/uL Neut % (Auto) (45.0-80.0) % Lymph % (Auto) (10.0-50.0) % [place] % (Auto) (2.0-14.0) % Eos % (Auto) (0.0-5.0) % Baso % (Auto) (0.0-2.0) % Neut # (Auto) (1.40-7.00) K/uL Lymph # (Auto) (0.50-3.50) K/uL [place] # (Auto) (0.00-1.00) K/uL Eos # (Auto) (0.00-0.50) K/uL Baso # (Auto) (0.00-0.20) K/uL PT (9.8-11.7) SEC INR Sodium (136-145) mmol/L Potassium (3.5-5.1) mmol/L Chloride (98-107) mmol/L Carbon Dioxide (21.0-32.0) mmol/L BUN (7-18) mg/dL Creatinine (0.51-1.17) mg/dL Est Cr Clr Drug Dosing mL/min Estimated GFR (MDRD) mL/min Glucose (74-106) mg/dL POC Glucose 65 80 77 (65-110) mg/dl Calcium (8.5-10.1) mg/dL Total Bilirubin (0.2-1.0) mg/dL AST (15-37) U/L ALT (12-78) U/L Alkaline Phosphatase (46-116) IU/L Creatine Kinase (26-308) U/L Creatine Kinase Index (0.0-2.5) % CK-MB (CK-2) (0.00-3.60) ng/mL C-Reactive Protein (<=0.9) mg/dL NT-Pro-B Natriuret Pep (0-125) pg/mL Total Protein (6.4-8.2) g/dL Albumin (3.4-5.0) g/dL 10/16/17 10/16/17 10/16/17 Range/Units 12:45 12:45 12:45 WBC 10.7 H (4.0-10.2) K/uL RBC 5.09 (4.33-5.41) M/uL Hgb 13.3 (13.1-16.8) g/dL Hct 46.7 (39.0-49.0) % MCV 91.7 D (84.0-98.0) fL MCH 26.1 L (28.2-33.3) pg MCHC 28.5 L (31.7-36.0) g/dL RDW 22.4 H (11.2-14.1) % Plt Count 164 (150-350) K/uL Neut % (Auto) 86.1 H (45.0-80.0) % Lymph % (Auto) 4.0 L (10.0-50.0) % [place] % (Auto) 9.6 (2.0-14.0) % Eos % (Auto) 0.1 (0.0-5.0) % Baso % (Auto) 0.2 (0.0-2.0) % Neut # (Auto) 9.23 H (1.40-7.00) K/uL Lymph # (Auto) 0.43 L (0.50-3.50) K/uL [place] # (Auto) 1.03 H (0.00-1.00) K/uL Eos # (Auto) 0.01 (0.00-0.50) K/uL Baso # (Auto) 0.02 (0.00-0.20) K/uL PT 12.6 H (9.8-11.7) SEC INR 1.2 Sodium 141 (136-145) mmol/L Potassium 4.3 (3.5-5.1) mmol/L Chloride 108 H (98-107) mmol/L Carbon Dioxide 31.4 (21.0-32.0) mmol/L BUN 13 (7-18) mg/dL Creatinine 0.91 (0.51-1.17) mg/dL Est Cr Clr Drug Dosing 61.51 mL/min Estimated GFR (MDRD) > 60 mL/min Glucose 73 L (74-106) mg/dL POC Glucose (65-110) mg/dl Calcium 8.1 L (8.5-10.1) mg/dL Total Bilirubin 1.2 H (0.2-1.0) mg/dL AST 179 H (15-37) U/L ALT 46 (12-78) U/L Alkaline Phosphatase 67 (46-116) IU/L Creatine Kinase (26-308) U/L Creatine Kinase Index (0.0-2.5) % CK-MB (CK-2) (0.00-3.60) ng/mL C-Reactive Protein 10.3 H (<=0.9) mg/dL NT-Pro-B Natriuret Pep 7783 H (0-125) pg/mL Total Protein 5.5 L (6.4-8.2) g/dL Albumin 1.9 L (3.4-5.0) g/dL 10/16/17 10/16/17 10/16/17 Range/Units 12:45 13:59 14:37 WBC (4.0-10.2) K/uL RBC (4.33-5.41) M/uL Hgb (13.1-16.8) g/dL Hct (39.0-49.0) % MCV (84.0-98.0) fL MCH (28.2-33.3) pg MCHC (31.7-36.0) g/dL RDW (11.2-14.1) % Plt Count (150-350) K/uL Neut % (Auto) (45.0-80.0) % Lymph % (Auto) (10.0-50.0) % [place] % (Auto) (2.0-14.0) % Eos % (Auto) (0.0-5.0) % Baso % (Auto) (0.0-2.0) % Neut # (Auto) (1.40-7.00) K/uL Lymph # (Auto) (0.50-3.50) K/uL [place] # (Auto) (0.00-1.00) K/uL Eos # (Auto) (0.00-0.50) K/uL Baso # (Auto) (0.00-0.20) K/uL PT (9.8-11.7) SEC INR Sodium (136-145) mmol/L Potassium (3.5-5.1) mmol/L Chloride (98-107) mmol/L Carbon Dioxide (21.0-32.0) mmol/L BUN (7-18) mg/dL Creatinine (0.51-1.17) mg/dL Est Cr Clr Drug Dosing mL/min Estimated GFR (MDRD) mL/min Glucose (74-106) mg/dL POC Glucose 59 L 98 (65-110) mg/dl Calcium (8.5-10.1) mg/dL Total Bilirubin (0.2-1.0) mg/dL AST (15-37) U/L ALT (12-78) U/L Alkaline Phosphatase (46-116) IU/L Creatine Kinase 2738 H (26-308) U/L Creatine Kinase Index 0.4 (0.0-2.5) % CK-MB (CK-2) 12.00 H* (0.00-3.60) ng/mL C-Reactive Protein (<=0.9) mg/dL NT-Pro-B Natriuret Pep (0-125) pg/mL Total Protein (6.4-8.2) g/dL Albumin (3.4-5.0) g/dL 10/16/17 Range/Units 15:35 WBC (4.0-10.2) K/uL RBC (4.33-5.41) M/uL Hgb (13.1-16.8) g/dL Hct (39.0-49.0) % MCV (84.0-98.0) fL MCH (28.2-33.3) pg MCHC (31.7-36.0) g/dL RDW (11.2-14.1) % Plt Count (150-350) K/uL Neut % (Auto) (45.0-80.0) % Lymph % (Auto) (10.0-50.0) % [place] % (Auto) (2.0-14.0) % Eos % (Auto) (0.0-5.0) % Baso % (Auto) (0.0-2.0) % Neut # (Auto) (1.40-7.00) K/uL Lymph # (Auto) (0.50-3.50) K/uL [place] # (Auto) (0.00-1.00) K/uL Eos # (Auto) (0.00-0.50) K/uL Baso # (Auto) (0.00-0.20) K/uL PT (9.8-11.7) SEC INR Sodium (136-145) mmol/L Potassium (3.5-5.1) mmol/L Chloride (98-107) mmol/L Carbon Dioxide (21.0-32.0) mmol/L BUN (7-18) mg/dL Creatinine (0.51-1.17) mg/dL Est Cr Clr Drug Dosing mL/min Estimated GFR (MDRD) mL/min Glucose (74-106) mg/dL POC Glucose 114 H (65-110) mg/dl Calcium (8.5-10.1) mg/dL Total Bilirubin (0.2-1.0) mg/dL AST (15-37) U/L ALT (12-78) U/L Alkaline Phosphatase (46-116) IU/L Creatine Kinase (26-308) U/L Creatine Kinase Index (0.0-2.5) % CK-MB (CK-2) (0.00-3.60) ng/mL C-Reactive Protein (<=0.9) mg/dL NT-Pro-B Natriuret Pep (0-125) pg/mL Total Protein (6.4-8.2) g/dL Albumin (3.4-5.0) g/dL Med Orders - Current: Current Medications Acetaminophen (Tylenol) 650 mg PO Q4H PRN PRN Reason: Pain (Mild 1-3)/fever Last Admin: 10/16/17 07:59 Dose: 650 mg Betamethasone/Clotrimazole (Lotrisone) 1 gm TOP ASDIRECTED PRN PRN Reason: RASH Bisacodyl (Dulcolax) 5 mg PO DAILY PRN PRN Reason: Constipation Calcium Polycarbophil (Fibercon) 625 mg PO Q12HR [facility] Last Admin: 10/16/17 07:58 Dose: 625 mg Cephalexin (Keflex) 500 mg PO Q8H [facility] Last Admin: 10/16/17 14:05 Dose: Not Given Docusate Sodium (Colace) 100 mg PO DAILY [facility] Last Admin: 10/16/17 08:00 Dose: 100 mg Ferrous Sulfate (Ferrous Sulfate) 325 mg PO DAILY [facility] Last Admin: 10/16/17 08:00 Dose: 325 mg Furosemide (Lasix) 20 mg IVPUSH DAILY [facility] Last Admin: 10/16/17 07:52 Dose: 20 mg Gabapentin (Neurontin) 300 mg PO TID [facility] Last Admin: 10/16/17 11:25 Dose: 300 mg Dextrose/Sodium Chloride (Dextrose 5%-Normal Saline) 1,000 mls @ 75 mls/hr IV ASDIRECTED [facility] Stop: 10/17/17 03:19 Last Admin: 10/16/17 14:20 Dose: 75 mls/hr Dextrose/Sodium Chloride (Dextrose 5%-Normal Saline) 1,000 mls @ 150 mls/hr IV ASDIRECTED [facility] Stop: 10/16/17 18:01 Ketotifen Fumarate (Ketotifen 0.025% Ophth Soln) 1 ml EYEBOTH Q12HR [facility] Last Admin: 10/16/17 07:24 Dose: 1 drop Meclizine HCl (Antivert) 25 mg PO Q6H PRN PRN Reason: Dizziness Metronidazole [ Metronidazole] Topical 1 applic TP DAILY PRN PRN Reason: skin irritation Blue Emu Oil Nf 1 each TOP ASDIRECTED PRN PRN Reason: as needed for skin care Ondansetron HCl (Zofran Odt) 4 mg PO Q6H PRN PRN Reason: Nausea/Vomiting Ondansetron HCl (Zofran) 4 mg IVPUSH Q6H PRN PRN Reason: Nausea/Vomiting Potassium Chloride (Klor-Con M20) 20 meq PO DAILY [facility] Last Admin: 10/16/17 07:58 Dose: 20 meq Prednisone (Prednisone) 5 mg PO DAILY [facility] Last Admin: 10/16/17 07:51 Dose: 5 mg Sodium Chloride (Saline Flush) 10 ml FLUSH ASDIRECTED PRN PRN Reason: Keep Vein Open Last Admin: 10/15/17 21:07 Dose: 10 ml Temazepam (Restoril) 15 mg PO BEDTIME PRN PRN Reason: Sleep Warfarin Sodium (Coumadin) 2.5 mg PO DAILY@1800 [facility] Last Admin: 10/15/17 17:18 Dose: 2.5 mg Warfarin Sodium (Coumadin) 5 mg PO DAILY@1800 [facility] Last Admin: 10/15/17 17:18 Dose: 5 mg Discontinued Medications Calcium Polycarbophil (Fibercon) 1 mg PO Q12HR [facility] Last Admin: 10/15/17 23:44 Dose: Not Given Dextrose/Water (Dextrose 50% In Water) 50 ml IVPUSH ONETIME ONE Stop: 10/16/17 14:03 Last Admin: 10/16/17 14:14 Dose: 50 ml Glyburide (Micronase) 5 mg PO DAILY [facility] Last Admin: 10/16/17 08:01 Dose: 5 mg *Q Meaningful Use (DIS) - VTE *Q VTE Mechanical Contraindications *Q: Bilateral Lower Edema
[2017-10-21] MEDS ORDERED: Warfarin 5 MG Tab PO SCH (18:00)
== END 2017-10-16 17:05 | DRG 293 ==
LOC: LL.ED 09:52 → LL.MS 12:15 → UNDOADMIN 12:15 → LL.MS 15:17
PROVIDERS: ADMIT Emergency Medicine; ATTEND Family Medicine
DX: I11.0 Hypertensive heart disease with heart failure (principal); R09.02 Hypoxemia; E11.649 Type 2 diabetes mellitus with hypoglycemia without coma; M35.3 Polymyalgia rheumatica; W19.XXXA Unspecified fall, initial encounter; I50.32 Chronic diastolic (congestive) heart failure; I95.9 Hypotension, unspecified; E11.9 Type 2 diabetes mellitus without complications; R41.82 Altered mental status, unspecified; R53.1 Weakness; Y92.59 Other trade areas as the place of occurrence of the external cause; R60.9 Edema, unspecified; I48.91 Unspecified atrial fibrillation; E78.00 Pure hypercholesterolemia, unspecified; G47.30 Sleep apnea, unspecified; R13.12 Dysphagia, oropharyngeal phase; F41.9 Anxiety disorder, unspecified; E66.9 Obesity, unspecified; K43.9 Ventral hernia without obstruction or gangrene; D50.9 Iron deficiency anemia, unspecified; I87.2 Venous insufficiency (chronic) (peripheral); Z68.30 Body mass index [BMI] 30.0-30.9, adult; E53.8 Deficiency of other specified B group vitamins; I44.0 Atrioventricular block, first degree; H91.90 Unspecified hearing loss, unspecified ear; L53.8 Other specified erythematous conditions; Z79.01 Long term (current) use of anticoagulants; Z86.711 Personal history of pulmonary embolism; Z86.718 Personal history of other venous thrombosis and embolism; Z79.84 Long term (current) use of oral hypoglycemic drugs; Z79.899 Other long term (current) drug therapy
CPT/HCPCS: 36415; 51702; 70450; 71045; 80053; 81001; 82550; 82553; 82962; 83880; 85025; 85610; 86140; 93005; 97163-GP; 97530-GP; 99285; A9270-GY; J1940; J7042; J7050; J7060

== ENCOUNTER 2017-11-15 10:39 | Inpatient (IN) | payer MEDICARE, OTHER ==
[2017-11-15] MEDS ORDERED: Sodium Chloride 0.9% 10 ML Syringe FLUSH PRN (11:52)
--- NOTE | 2017-11-15 13:04 | PCM.HP ---
H&P History of Present Illness - General Date of Service: 11/15/17 Admit Problem/Dx: Admission Diagnosis/Problem Admission Diagnosis/Problem Pneumonia CHF Fever Hypotension Source of Information: Patient, Shelter Records, RN ([facility] Skilled) History Limitations: Reports: Altered Mental Status (confused and uncooperative here on admission, a change for him) - History of Present Illness Initial Comments - Free Text/Narative: T101.3 this morning, SBP in the 80's, his mental status Onset of Symptoms: Reports: Sudden, Other (nursing staff had concerns in the night ) Symptom Onset Date: 11/15/17 Duration of Symptoms: Reports: Day(s):, Getting Worse Location: Reports: Chest, Generalized Severity: Moderate Improves with: Reports: None Worsens with: Reports: None Associated Symptoms: Reports: Confusion, Cough, Weakness, Other (c/o shakiness) - Related Data Allergies/Adverse Reactions: Allergies Allergy/AdvReac Type Severity Reaction Status Date / Time No Known Allergies Allergy Verified 11/15/17 11:51 Home Medications: Home Meds Acetaminophen [Tylenol Extra Strength] 1,000 mg PO Q4H 10/15/17 [History] Bumetanide 0.5 mg PO DAILY 10/15/17 [History] Fluocinonide [Lidex 0.05% Crm] 1 applic TOP BID PRN 10/15/17 [History] Gabapentin [Neurontin] 300 mg PO TID 10/15/17 [History] Olopatadine HCl 1 drop EYEBOTH DAILY 10/15/17 [History] Potassium Chloride [Klor-Con M20] 20 meq PO DAILY 10/15/17 [History] Warfarin [Coumadin] 5 mg PO DAILY@1800 10/15/17 [History] metroNIDAZOLE [Metronidazole] 1 applic TP DAILY PRN 10/15/17 [History] predniSONE [Prednisone] 5 mg PO DAILY 10/15/17 [History] Bisacodyl 5 - 10 mg PO DAILY PRN 11/15/17 [History] Bisacodyl [Dulcolax] 10 mg RC DAILY PRN 11/15/17 [History] Omeprazole 20 mg PO DAILY 11/15/17 [History] Pravastatin Sodium [Pravachol] 10 mg PO BEDTIME 11/15/17 [History] Sennosides [Senna Lax] 8.6 mg PO DAILY 11/15/17 [History] metFORMIN HCl [Metformin HCl ER] 500 mg PO DAILY@1700 11/15/17 [History] metOLazone [Metolazone] 2.5 mg PO DAILY PRN 11/15/17 [History] Past Medical History HEENT History: Reports: Cataract, Hard of Hearing Cardiovascular History: Reports: Afib, Blood Clots/VTE/DVT, Heart Failure ( grade 1 diastolic dysfunction, hypoxia), High Cholesterol, Hypertension, Pulmonary Hypertension, Other (See Below) (edema) Respiratory History: Reports: PE, Sleep Apnea, SOB, Other (See Below) (hypoxia) Other Respiratory History: hypoxia Gastrointestinal History: Reports: Other (See Below) (Dysphagia, oropharyngeal phase) Musculoskeletal History: Reports: Back Pain, Chronic, Osteoarthritis, Other ( See Below) (degenerative disc disease, right sided sciatica) Neurological History: Reports: Head Trauma, Vertigo Psychiatric History: Reports: Anxiety Endocrine/Metabolic History: Reports: Diabetes, Type II, Obesity/BMI 30+ Hematologic History: Reports: B12 Deficiency, Iron Deficiency Immunologic History: Reports: Other (See Below) (PMR) Dermatologic History: Reports: Venous Stasis Dermatitis, Other (See Below) ( Rosacea, mild pressure changes in skin of gluteal cleft nipple pain) - Past Surgical History GI Surgical History: Reports: Hernia, Abdominal Social & Family History - Tobacco Use Tobacco Use Within Last Twelve Months: No - Caffeine Use Caffeine Use: Reports: Coffee - Alcohol Use Alcohol Use History: No H&P Review of Systems - Review of Systems: Review Of Systems: ROS reveals no pertinent complaints other than HPI. Exam - Exam Exam: See Below - Exam General: Mild Distress, Other (uncooperative) HEENT: TMs Clear, Other (keeps his eyes closed over here at the hospital for the most part, grimacing) Neck: Supple, Trachea Midline Lungs: Decreased Breath Sounds Cardiovascular: Irregular Rhythm GI/Abdominal Exam: Normal Bowel Sounds, Soft, Non-Tender (Male) Exam: Deferred, Other (jimenez catheter recently discontinued, has been incontinent of urine) Rectal (Males) Exam: Deferred Back Exam: Normal Inspection Extremities: Pedal Edema (has BLE wraps in place) Neuro Extensive - Mental Status: Slow Response to Commands, Other (orientation is not consistent, he alternately recognizes me and his [facility] 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 then does not) Neuro Extensive - Motor, Sensory, Reflexes: Other (in wheelchair, not cooperative with exam) Psychiatric: Agitated (refusing IV start and lab draw, mumbling ) - Patient Data Lab Results Last 24 hrs: Laboratory Results - last 24 hr 11/15/17 Range/Units 12:17 PT 26.0 H D (9.8-11.7) SEC INR 2.4 - Problem List (1) Pneumonia SNOMED Code(s): 919135321 ICD Code: J18.9 - PNEUMONIA, UNSPECIFIED ORGANISM Status: Acute Priority : High Current Visit: Yes Qualifiers: Laterality: left Lung location: upper lobe of lung (2) Mental status alteration SNOMED Code(s): 888774081 ICD Code: R41.82 - ALTERED MENTAL STATUS, UNSPECIFIED Status: Acute Priority: High Current Visit: Yes Qualifiers: Qualified Code(s): R40.4 - Transient alteration of awareness (3) Fever SNOMED Code(s): 875693571 ICD Code: R50.9 - FEVER, UNSPECIFIED Status: Acute Priority: High Current Visit: Yes Qualifiers: Fever type: due to other condition Qualified Code(s): R50.81 - Fever presenting with conditions classified elsewhere Problem List Initiated/Reviewed/Updated: Yes Orders Last 24hrs: Active Orders 24 hr Category Date Time Status Patient Status [ADT] Routine ADT 11/15/17 11:52 Active Bedrest Bathroom Privileges [RC] ASDIRECTED Care 11/15/17 11:52 Active Height and Weight [RC] DAILY Care 11/15/17 11:52 Active Intake and Output [RC] QSHIFT Care 11/15/17 11:53 Active Oxygen Therapy [RC] PRN Care 11/15/17 11:52 Active Up With Assistance [RC] ASDIRECTED Care 11/15/17 11:52 Active VTE/DVT Education [RC] PER UNIT ROUTINE Care 11/15/17 11:52 Active Vital Signs [RC] Q4H Care 11/15/17 11:52 Active 2 Gram Sodium Diet [DIET] Diet 11/15/17 Dinner Active Chest 2V [CR] Routine Exams 11/15/17 10:45 Taken C-REACTIVE PROTEIN [CHEM] AM Lab 11/16/17 05:11 Ordered C-REACTIVE PROTEIN [CHEM] AM Lab 11/17/17 05:11 Ordered C-REACTIVE PROTEIN [CHEM] AM Lab 11/18/17 05:11 Ordered C-REACTIVE PROTEIN [CHEM] AM Lab 11/19/17 05:11 Ordered CBC WITH AUTO DIFF [HEME] AM Lab 11/16/17 05:11 Ordered CBC WITH AUTO DIFF [HEME] AM Lab 11/17/17 05:11 Ordered CBC WITH AUTO DIFF [HEME] AM Lab 11/18/17 05:11 Ordered CBC WITH AUTO DIFF [HEME] AM Lab 11/19/17 05:11 Ordered COMPREHENSIVE METABOLIC PN,CMP [CHEM] AM Lab 11/16/17 05:11 Ordered COMPREHENSIVE METABOLIC PN,CMP [CHEM] AM Lab 11/17/17 05:11 Ordered COMPREHENSIVE METABOLIC PN,CMP [CHEM] AM Lab 11/18/17 05:11 Ordered COMPREHENSIVE METABOLIC PN,CMP [CHEM] AM Lab 11/19/17 05:11 Ordered CULTURE BLOOD [BC] Stat Lab 11/15/17 11:59 Ordered CULTURE BLOOD [BC] Stat Lab 11/15/17 12:17 Received CULTURE URINE [RM] Stat Lab 11/15/17 11:52 Ordered INR,PT,PROTHROMBIN TIME [COAG] DAILY Lab 11/16/17 05:11 Ordered INR,PT,PROTHROMBIN TIME [COAG] DAILY Lab 11/17/17 05:11 Ordered INR,PT,PROTHROMBIN TIME [COAG] DAILY Lab 11/18/17 05:11 Ordered INR,PT,PROTHROMBIN TIME [COAG] DAILY Lab 11/19/17 05:11 Ordered MYCOPLASMA IGM RAPID [MREF] Urgent Lab 11/15/17 06:30 Received PRO B-TYPE NATRIUR PEPT,BNPPRO [CHEM] DAILY Lab 11/16/17 05:11 Ordered PRO B-TYPE NATRIUR PEPT,BNPPRO [CHEM] DAILY Lab 11/17/17 05:11 Ordered PRO B-TYPE NATRIUR PEPT,BNPPRO [CHEM] DAILY Lab 11/18/17 05:11 Ordered PRO B-TYPE NATRIUR PEPT,BNPPRO [CHEM] DAILY Lab 11/19/17 05:11 Ordered UA W/MICROSCOPIC [URIN] Stat Lab 11/15/17 11:52 Ordered Azithromycin [Zithromax] 500 mg Med 11/15/17 15:00 Active Sodium Chloride 0.9% [Normal Saline] 250 ml IV Q24H Piperacillin/Tazobactam [Zosyn] 3.375 gm Med 11/15/17 14:00 Active Sodium Chloride 0.9% [Normal Saline] 100 ml IV Q6H Sodium Chloride 0.9% [Saline Flush] Med 11/15/17 11:52 Active 10 ml FLUSH ASDIRECTED PRN Warfarin [Coumadin] Med 11/16/17 08:00 Pending 5 mg PO DAILY metroNIDAZOLE/Normal Saline [Flagyl 500 MG in NS 100 ML Med 11/15/17 13:00 Active ] 500 mg Premix Bag 1 bag IV Q8H Antiembolic Hose [OM.PC] Per Unit Routine Ot 11/15/17 11:57 Ordered Blood Culture x2 Reflex Set [OM.PC] Stat Ot 11/15/17 11:52 Ordered Saline Lock Insert [OM.PC] Routine Oth 11/15/17 11:52 Ordered Resuscitation Status Routine Resus Stat 11/15/17 11:52 Ordered Medication Orders Metronidazole 500 mg/ Premix 100 mls @ 100 mls/hr IV Q8H JAVED Azithromycin 500 mg/ Sodium (Chloride) 250 mls @ 250 mls/hr IV Q24H JAVED Piperacillin Sod/Tazobactam (Sod 3.375 gm/ Sodium Chloride) 100 mls @ 200 mls/ hr IV Q6H JAVED Sodium Chloride (Saline Flush) 10 ml FLUSH ASDIRECTED PRN PRN Reason: Keep Vein Open Warfarin Sodium (Coumadin) 5 mg PO DAILY [facility] Assessment/Plan Comment:: 11-15-17 Paula Alva PA-C Patient admitted to IP status after workup this morning. Nursing staff from the [facility] had contacted me with concerns regarding fever of 101.3, hypotension, weakness, tremor and some little change in normal mentation. He told me in the clinic he was "just so shakey and weak." Tremor noted in BUE. Fever had come down to 99 degrees with 1000 mg Tylenol. WBC's 9,000 with 83.2% neutrophils, and CRP 3,8. BNP 1911. CXR suggested aspiration pneumonia. There is also concern for urosepsis, considering jimenez catheter just removed a few days ago. He will require at least 96 hours of IP treatment, he is a very complex patient. Daughter was notified of admit. Dr. Downing was consulted.
[2017-11-15] MEDS: metroNIDAZOLE/Normal Saline 500 MG in Premix Bag 1 BAG IV SCH (13:44)
[2017-11-15 15:51] VITALS: BP 101/58
[2017-11-15] MEDS: Acetaminophen 325 MG Tab PO PRN (16:18)
[2017-11-15] MEDS: Piperacillin/Tazobactam 3.375 GM in Sodium Chloride 0.9% 100 ML IV SCH (16:20)
[2017-11-15] MEDS: Azithromycin 500 MG in Sodium Chloride 0.9% 250 ML IV SCH (17:15)
[2017-11-15] MEDS ORDERED: Warfarin 5 MG Tab PO SCH (18:00)
--- NOTE | 2017-11-19 13:20 | PCM.DCSUM1 ---
Discharge Summary - Hospital Course Diagnosis: Stroke: No - Discharge Data Discharge Date: 11/15/17 Discharge Disposition: DC/Tfer to Acute Hospital 02 Condition: Poor - Patient Instructions Diet: NPO Activity: Bedrest - Discharge Plan *PRESCRIPTION DRUG MONITORING PROGRAM REVIEWED*: Not Applicable *COPY OF PRESCRIPTION DRUG MONITORING REPORT IN PATIENT ALBARO: Not Applicable Home Medications: Home Meds Acetaminophen [Tylenol Extra Strength] 1,000 mg PO Q4H 10/15/17 [History] Bumetanide 0.5 mg PO DAILY 10/15/17 [History] Fluocinonide [Lidex 0.05% Crm] 1 applic TOP BID PRN 10/15/17 [History] Gabapentin [Neurontin] 300 mg PO TID 10/15/17 [History] Olopatadine HCl 1 drop EYEBOTH DAILY 10/15/17 [History] Potassium Chloride [Klor-Con M20] 20 meq PO DAILY 10/15/17 [History] Warfarin [Coumadin] 5 mg PO DAILY@1800 10/15/17 [History] metroNIDAZOLE [Metronidazole] 1 applic TP DAILY PRN 10/15/17 [History] predniSONE [Prednisone] 5 mg PO DAILY 10/15/17 [History] Bisacodyl 5 - 10 mg PO DAILY PRN 11/15/17 [History] Bisacodyl [Dulcolax] 10 mg RC DAILY PRN 11/15/17 [History] Omeprazole 20 mg PO DAILY 11/15/17 [History] Pravastatin Sodium [Pravachol] 10 mg PO BEDTIME 11/15/17 [History] Sennosides [Senna Lax] 8.6 mg PO DAILY 11/15/17 [History] metFORMIN HCl [Metformin HCl ER] 500 mg PO DAILY@1700 11/15/17 [History] metOLazone [Metolazone] 2.5 mg PO DAILY PRN 11/15/17 [History] - Discharge Summary/Plan Comment DC Time >30 min.: No - Patient Data Vitals - Most Recent: Last Vital Signs Temp 101.5 F H 11/15/17 15:00 Pulse 99 11/15/17 15:00 Resp 16 11/15/17 15:00 BP 101/58 L 11/15/17 15:00 Pulse Ox 95 11/15/17 15:00 Med Orders - Current: Current Medications Discontinued Medications Acetaminophen (Tylenol) 650 mg PO Q3H PRN PRN Reason: pain, temp >100.5 Last Admin: 11/15/17 16:18 Dose: 650 mg Metronidazole 500 mg/ Premix 100 mls @ 100 mls/hr IV Q8H JAVED Last Admin: 11/15/17 13:44 Dose: 100 mls/hr Azithromycin 500 mg/ Sodium (Chloride) 250 mls @ 250 mls/hr IV Q24H JAVED Last Admin: 11/15/17 17:15 Dose: Not Given Piperacillin Sod/Tazobactam (Sod 3.375 gm/ Sodium Chloride) 100 mls @ 200 mls/ hr IV Q6H JAVED Last Admin: 11/15/17 16:20 Dose: 200 mls/hr Sodium Chloride (Saline Flush) 10 ml FLUSH ASDIRECTED PRN PRN Reason: Keep Vein Open Warfarin Sodium (Coumadin) 5 mg PO DAILY@1800 JAVED
== END 2017-11-15 17:09 | DRG 871 ==
LOC: LL.DI 10:39 → LL.MS 11:42
PROVIDERS: ADMIT Physician Assistant; ATTEND Family Medicine
DX: A41.9 Sepsis, unspecified organism (principal); J69.0 Pneumonitis due to inhalation of food and vomit; I11.0 Hypertensive heart disease with heart failure; I48.91 Unspecified atrial fibrillation; I27.20 Pulmonary hypertension, unspecified; G47.30 Sleep apnea, unspecified; R13.12 Dysphagia, oropharyngeal phase; G89.29 Other chronic pain; M54.9 Dorsalgia, unspecified; M54.31 Sciatica, right side; E11.9 Type 2 diabetes mellitus without complications; E66.9 Obesity, unspecified; Z68.30 Body mass index [BMI] 30.0-30.9, adult; E53.8 Deficiency of other specified B group vitamins; I87.8 Other specified disorders of veins; Z79.899 Other long term (current) drug therapy; Z79.52 Long term (current) use of systemic steroids; Z79.01 Long term (current) use of anticoagulants; Z86.718 Personal history of other venous thrombosis and embolism; Z79.84 Long term (current) use of oral hypoglycemic drugs
CPT/HCPCS: 36415; 71046; 82962; 85610; 86738; 87040; 87077; 87186; A9270-GY; J2543; J3490; J7050

== ENCOUNTER 2018-05-30 11:10 | Emergency (ER) | payer MEDICARE, OTHER, MEDICAID ==
[2018-05-30 12:08] LABS: CHLORIDE,CL 105 mmol/L (98-107); SODIUM,NA 144 mmol/L (136-145)
[2018-05-30] MEDS ORDERED: Ondansetron 4 MG/2 ML SDV IVPUSH ONE (12:56)
[2018-05-30] MEDS ORDERED: Morphine 2 MG/ML Syringe IVPUSH ONE (12:56)
[2018-05-30] MEDS ORDERED: Promethazine 25 MG/ML SDV IM ONE (14:06)
[2018-05-30] MEDS ORDERED: LORazepam 2 MG/ML SDV IVPUSH ONE (14:06)
--- NOTE | 2018-05-30 14:43 | EDM.PDOC ---
ED HPI GENERAL MEDICAL PROBLEM - General Chief Complaint: Trauma Stated Complaint: fall Time Seen by Provider: 05/30/18 12:38 Source of Information: Reports: EMS, Other ([facility] staff) History Limitations: Reports: Altered Mental Status - History of Present Illness INITIAL COMMENTS - FREE TEXT/NARRATIVE: Patient brought in for evaluation after having fall at [facility]. Observed to fall straight backward from standing. Landed on back/back of head. Had LOC. Unknown how many minutes. Was awake when EMS arrived. Decreased LOC per [facility] staff. Has baseline mild cognitive impairment and word searching. Obvious laceration on back of head. Placed in C-collar on scene. No other changes reported by EMS/staff. EMS reports O2 sats on room air initially were in 70s, placed on non-rebreather mask. Sats 95% on 10L upon arrival. Trauma Code called by EMS - Related Data Allergies Allergy/AdvReac Type Severity Reaction Status Date / Time No Known Allergies Allergy Verified 11/15/17 11:51 Home Meds: Home Meds Acetaminophen [Tylenol Extra Strength] 1,000 mg PO Q4H 10/15/17 [History] Bumetanide 0.5 mg PO DAILY 10/15/17 [History] Fluocinonide [Lidex 0.05% Crm] 1 applic TOP BID PRN 10/15/17 [History] Gabapentin [Neurontin] 300 mg PO TID 10/15/17 [History] Olopatadine HCl 1 drop EYEBOTH DAILY 10/15/17 [History] Potassium Chloride [Klor-Con M20] 20 meq PO DAILY 10/15/17 [History] metroNIDAZOLE [Metronidazole] 1 applic TP DAILY PRN 10/15/17 [History] predniSONE [Prednisone] 5 mg PO DAILY 10/15/17 [History] Bisacodyl 5 - 10 mg PO DAILY PRN 11/15/17 [History] Bisacodyl [Dulcolax] 10 mg RC DAILY PRN 11/15/17 [History] Omeprazole 20 mg PO DAILY 11/15/17 [History] Pravastatin Sodium [Pravachol] 10 mg PO BEDTIME 11/15/17 [History] Sennosides [Senna Lax] 8.6 mg PO DAILY 11/15/17 [History] metFORMIN HCl [Metformin ER Osmotic] 500 mg PO DAILY@1700 11/15/17 [History] metOLazone [Metolazone] 2.5 mg PO DAILY PRN 11/15/17 [History] Ondansetron [Zofran ODT] 4 mg PO Q6H PRN #20 tab.dis 05/30/18 [Rx] levETIRAcetam [Keppra 500 MG/5 ML Soln] 500 mg PO BID #30 cup 05/30/18 [Rx] Past Medical History HEENT History: Reports: Cataract, Hard of Hearing Cardiovascular History: Reports: Afib, Blood Clots/VTE/DVT, Heart Failure ( grade 1 diastolic dysfunction, hypoxia), High Cholesterol, Hypertension, Pulmonary Hypertension, Other (See Below) (edema) Respiratory History: Reports: PE, Sleep Apnea, SOB, Other (See Below) (hypoxia) Other Respiratory History: hypoxia Gastrointestinal History: Reports: Other (See Below) (Dysphagia, oropharyngeal phase) Musculoskeletal History: Reports: Back Pain, Chronic, Osteoarthritis, Other ( See Below) (degenerative disc disease, right sided sciatica) Neurological History: Reports: Head Trauma, Vertigo Psychiatric History: Reports: Anxiety Endocrine/Metabolic History: Reports: Diabetes, Type II, Obesity/BMI 30+ Hematologic History: Reports: B12 Deficiency, Iron Deficiency Immunologic History: Reports: Other (See Below) (PMR) Dermatologic History: Reports: Venous Stasis Dermatitis, Other (See Below) ( Rosacea, mild pressure changes in skin of gluteal cleft nipple pain) - Past Surgical History GI Surgical History: Reports: Hernia, Abdominal Social & Family History - Caffeine Use Caffeine Use: Reports: Coffee Review of Systems - Review of Systems Review Of Systems: Unable To Obtain ED EXAM, GENERAL - Physical Exam Exam: See Below Exam Limited By: Other (c-collar in place, patient somnolent, hard of hearing/ not wearing his hearing aids) General Appearance: No Apparent Distress, Lethargic Eye Exam: Bilateral Eye: EOMI, PERRL (4mm right 5mm left) Ears: Normal External Exam, Normal Canal Nose: No Blood Throat/Mouth: Normal Lips, Normal Gums, No Airway Compromise, Other (patient has no teeth) Head: Other (laceration/bruising on back of head). No: Facial Swelling, Facial Tenderness Neck: Other (no obvious trauma or tenderness, however exam limited by C-collar) Respiratory/Chest: No Respiratory Distress, Lungs Clear, Normal Breath Sounds, No Accessory Muscle Use, Chest Non-Tender Cardiovascular: Regular Rate, Rhythm, No Edema, No Murmur Peripheral Pulses: 2+: Radial (L), Radial (R), Dorsalis Pedis (L), Dorsalis Pedis (R) GI/Abdominal: Normal Bowel Sounds, Soft, Non-Tender, No Distention (Male) Exam: Deferred Rectal (Males) Exam: Deferred Back Exam: Other (ecchymosis noted mid back. No obvious tenderness with palpation or crepitus. No lacerations noted. ) Extremities: Other (No obvious pain with palpation of limbs. Passive motion does not trigger signs of discomfort. Skin tear right elbow. Ecchymosis left elbow. ) Neurological: Other (Appears to have equal tone bilaterally upper and lower limbs. Squeezes hand, wiggles toes when asked. Does not speak much/hard of hearing. ) Psychiatric: Normal Affect, Normal Mood Skin Exam: Warm, Ecchymosis (bilateral elbows, back of head, upper back), Other (laceration back of head, skin tear right elbow) ED TRAUMA PROCEDURES - Laceration/Wound Repair Posterior Head Lac/Wound Length In cm: 4 Appearance: Subcutaneous, Stellate, Clean Skin Prep: Saline Exploration/Debridement/Repair: Wound Explored, In a Bloodless Field, Explored to Base, No Foreign Material Found, Multiple Flaps Aligned Closed With: [place] # of Sutures: 5 Sterile Dressing Applied: Nurse Tetanus Status Addressed: Other (to be addressed by [facility]) Complications: No EKG INTERPRETATION EKG Date: 05/30/18 Time: 12:06 Rhythm: Other (paced rhythm) Rate (Beats/Min): 62 [place]: Normal P-Wave: Absent QRS: Other (pattern suggests intraventricular conduction delay) ST-T: Other (T wave morphology unusual ventricular leads, however no obvious ST elevation or depression noted) Course - Vital Signs Last Recorded V/S: Last Vital Signs Temp 35.7 C 05/30/18 14:55 Pulse 75 05/30/18 14:55 Resp 17 05/30/18 14:55 BP 131/62 05/30/18 14:55 Pulse Ox 96 05/30/18 14:55 - Orders/Labs/Meds Orders: Active Orders 24 hr Category Date Time Status Johnson Catheter Insertion [Insert Urinary Catheter] [OM. Care 05/30/18 14:15 Ordered PC] Q24H Urinary Catheter Assessment [RC] ASDIRECTED Care 05/30/18 14:06 Ordered Pelvis 1V or 2V [CR] Stat Exams 05/30/18 Taken Labs: Laboratory Tests 05/30/18 05/30/18 05/30/18 Range/Units 11:45 11:45 11:45 WBC 9.1 (4.0-10.2) K/uL RBC 3.89 L (4.33-5.41) M/uL Hgb 12.3 L (13.1-16.8) g/dL Hct 39.6 (39.0-49.0) % MCV 101.8 H D (84.0-98.0) fL MCH 31.6 (28.2-33.3) pg MCHC 31.1 L (31.7-36.0) g/dL RDW 14.0 (11.2-14.1) % Plt Count 220 (150-350) K/uL Neut % (Auto) 73.5 (45.0-80.0) % Lymph % (Auto) 15.3 (10.0-50.0) % [place] % (Auto) 7.5 (2.0-14.0) % Eos % (Auto) 3.4 (0.0-5.0) % Baso % (Auto) 0.3 (0.0-2.0) % Neut # (Auto) 6.69 (1.40-7.00) K/uL Lymph # (Auto) 1.39 (0.50-3.50) K/uL [place] # (Auto) 0.68 (0.00-1.00) K/uL Eos # (Auto) 0.31 (0.00-0.50) K/uL Baso # (Auto) 0.03 (0.00-0.20) K/uL PT 25.7 H (9.5-12.0) SEC INR 2.4 APTT 35.7 H (21.0-31.3) SEC Sodium 144 (136-145) mmol/L Potassium 3.6 (3.5-5.1) mmol/L Chloride 105 (98-107) mmol/L Carbon Dioxide 32.2 H (21.0-32.0) mmol/L BUN 18 (7-18) mg/dL Creatinine 0.77 (0.51-1.17) mg/dL Est Cr Clr Drug Dosing TNP Estimated GFR (MDRD) > 60 mL/min Glucose 157 H (74-106) mg/dL Calcium 8.4 L (8.5-10.1) mg/dL Total Bilirubin 0.4 (0.2-1.0) mg/dL AST 24 (15-37) U/L ALT 18 (12-78) U/L Alkaline Phosphatase 86 (46-116) IU/L Total Protein 5.5 L (6.4-8.2) g/dL Albumin 2.4 L (3.4-5.0) g/dL Specimen Type Urine Color Urine Appearance Urine pH (5.0-9.0) Ur Specific [place] (1.005-1.030) Urine Protein (NEGATIVE) mg/dL Urine Glucose (UA) (NEGATIVE) mg/dL Urine Ketones (NEGATIVE) mg/dL Urine Occult Blood (NEGATIVE) Urine Nitrite (NEGATIVE) Urine Bilirubin (NEGATIVE) Urine Urobilinogen (0.2-1.0) E.U./dL Ur Leukocyte Esterase (NEGATIVE) Urine RBC /HPF Urine WBC /HPF Ur Epithelial Cells /LPF Urine Bacteria (NONE TO FEW) /HPF Hyaline Casts (NEGATIVE) /LPF Blood Type 05/30/18 05/30/18 Range/Units 11:45 14:40 WBC (4.0-10.2) K/uL RBC (4.33-5.41) M/uL Hgb (13.1-16.8) g/dL Hct (39.0-49.0) % MCV (84.0-98.0) fL MCH (28.2-33.3) pg MCHC (31.7-36.0) g/dL RDW (11.2-14.1) % Plt Count (150-350) K/uL Neut % (Auto) (45.0-80.0) % Lymph % (Auto) (10.0-50.0) % [place] % (Auto) (2.0-14.0) % Eos % (Auto) (0.0-5.0) % Baso % (Auto) (0.0-2.0) % Neut # (Auto) (1.40-7.00) K/uL Lymph # (Auto) (0.50-3.50) K/uL [place] # (Auto) (0.00-1.00) K/uL Eos # (Auto) (0.00-0.50) K/uL Baso # (Auto) (0.00-0.20) K/uL PT (9.5-12.0) SEC INR APTT (21.0-31.3) SEC Sodium (136-145) mmol/L Potassium (3.5-5.1) mmol/L Chloride (98-107) mmol/L Carbon Dioxide (21.0-32.0) mmol/L BUN (7-18) mg/dL Creatinine (0.51-1.17) mg/dL Est Cr Clr Drug Dosing Estimated GFR (MDRD) mL/min Glucose (74-106) mg/dL Calcium (8.5-10.1) mg/dL Total Bilirubin (0.2-1.0) mg/dL AST (15-37) U/L ALT (12-78) U/L Alkaline Phosphatase (46-116) IU/L Total Protein (6.4-8.2) g/dL Albumin (3.4-5.0) g/dL Specimen Type Urincath Urine Color Yellow Urine Appearance Slightly cloudy Urine pH 5.0 (5.0-9.0) Ur Specific [place] 1.015 (1.005-1.030) Urine Protein Negative (NEGATIVE) mg/dL Urine Glucose (UA) Negative (NEGATIVE) mg/dL Urine Ketones Negative (NEGATIVE) mg/dL Urine Occult Blood Trace-intact H (NEGATIVE) Urine Nitrite Negative (NEGATIVE) Urine Bilirubin Negative (NEGATIVE) Urine Urobilinogen 0.2 (0.2-1.0) E.U./dL Ur Leukocyte Esterase Small H (NEGATIVE) Urine RBC 30-40 H /HPF Urine WBC >100 H /HPF Ur Epithelial Cells Not seen /LPF Urine Bacteria Moderate H (NONE TO FEW) /HPF Hyaline Casts Moderate H (NEGATIVE) /LPF Blood Type A POSITIVE Meds: Medications Discontinued Medications Generic Name Dose Route Start Last Admin Trade Name Freq PRN Reason Stop Dose Admin Levetiracetam 500 mg 05/30/18 15:30 05/30/18 16:02 Keppra PO 05/30/18 15:31 500 mg ONETIME ONE Administration Lorazepam 1 mg 05/30/18 14:06 05/30/18 15:36 Ativan IVPUSH 05/30/18 14:07 1 mg ONETIME ONE Administration Morphine Sulfate 2 mg 05/30/18 12:56 05/30/18 13:06 Morphine IVPUSH 05/30/18 12:57 2 mg ONETIME ONE Administration Ondansetron HCl 4 mg 05/30/18 12:56 05/30/18 13:06 Zofran IVPUSH 05/30/18 12:57 4 mg ONETIME ONE Administration Promethazine HCl 25 mg 05/30/18 14:06 05/30/18 14:24 Phenergan IM 05/30/18 14:07 25 mg ONETIME ONE Administration - Radiology Interpretation CT Results Date: 05/30/18 CT Results Time: 11:56 (Radiology noted subarachnoid bleed in basilar system, subdural on left, skull fracture near base of skull as well as sphenoid sinus, intracranial air present. No obvious cervical fx on CT per Radiology. ) - Re-Assessments/Exams Free Text/Narrative Re-Assessment/Exam: 05/30/18 14:58 Patient noted to have serious intracranial trauma as well as skull fractures. C -spine clear per Radiology. Labs overall stable. INR 2.4 Call placed to patient's daughter, Grace. She said that they wished for patient to have comfort care and did not want him to undergo any risky procedures. Call then placed to [facility] to have NeuroSurgery consult on scan results. returned our phone call within approx 20 minutes. He recommended FFP to help reverse patient's INR and potentially decrease or stop intracranial bleeding. He also recommended CT angiogram to see if patient possibly had aneurysm that could have led to observed fall at the [facility]. He also noted that there could be potential infection risk given the intracranial air/sphenoid sinus fracture. Call placed to [facility] in [place] during. Discussed patient with Erin. Given that patient's family wished for patient to be returned to [facility], patient was ultimately not considered for admission to their facility nor to ours. Second call placed to patient's daughter. 's advice and concerns were relayed to her. After careful consideration, the daughter said that the family would prefer to have the patient returned to the [facility] Home and have Hospice care initiated. Given his failing memory, and general failing health, as well as his previous wishes regarding his health care at end of life, this was felt by her to be the best option. A call was placed by nursing staff to [facility] to request consult. Patient will be sent back to [facility] with a prescription for buccal MS to be given PRN pain/discomfort. He received MS, antiemetics, Ativan here in the ER. It was noted while patient was receiving one unit of FFP that some left sided facial drooping was present and then appeared to improve. He continued to appear to move both upper and lower extremities equally, and could grasp with his hands and wiggle toes when requested. Started on Keppra per 's recommendation as patient will be at higher risk of seizures given today's injuries. Also received Rx for MS for pain/discomfort, and Zofran PRN. Departure - Departure Time of Disposition: 16:00 Disposition: DC/Tfer to SNF 03 Condition: Poor Clinical Impression: Subarachnoid hemorrhage, Multiple bruises Skull fracture Qualifiers: Encounter type: initial encounter Skull bone/location: unspecified skull bone Fracture type: open Qualified Code(s): S02.91XB - Unspecified fracture of skull , initial encounter for open fracture Subdural hematoma caused by concussion Qualifiers: Encounter type: initial encounter Loss of consciousness presence/duration: with LOC of 30 min or less Qualified Code(s): S06.5X1A - Traumatic subdural hemorrhage with loss of consciousness of 30 minutes or less, initial encounter Fall Qualifiers: Encounter type: initial encounter Qualified Code(s): W19.XXXA - Unspecified fall, initial encounter Laceration of head Qualifiers: Encounter type: initial encounter Location of open wound of head: scalp Foreign body presence: without foreign body Qualified Code(s): S01.01XA - Laceration without foreign body of scalp, initial encounter Skin tear of elbow without complication Qualifiers: Encounter type: initial encounter Laterality: right Qualified Code(s): S51.011A - Laceration without foreign body of right elbow, initial encounter - Discharge Information *PRESCRIPTION DRUG MONITORING PROGRAM REVIEWED*: Not Applicable *COPY OF PRESCRIPTION DRUG MONITORING REPORT IN PATIENT ALBARO: Not Applicable Prescriptions: levETIRAcetam [Keppra 500 MG/5 ML Soln] 500 mg PO BID #30 cup Ondansetron [Zofran ODT] 4 mg PO Q6H PRN #20 tab.dis PRN Reason: Nausea Referrals: Sheets-Velma Breen MD [Primary Care Provider] - Forms: ED Department Discharge Additional Instructions: Patient is to return to skilled care at [facility]. [facility] is requested to consult today in regards to patient care and placement on hospice plan. Follow up otherwise as needed. Hospice to adjust regular medications as needed after their evaluation. Keppra initiated given higher risk for seizures. Rx for Morphine 100mg/15ml. Patient to receive 2.5mg every 4 hours scheduled. OK to give Q1hour as needed for pain and discomfort. [place] out in 7-8 days - My Orders Last 24 Hours: My Active Orders 05/30/18 Pelvis 1V or 2V [CR] Stat 05/30/18 14:06 Urinary Catheter Assessment [RC] ASDIRECTED 05/30/18 14:15 Johnson Catheter Insertion [Insert Urinary Catheter] [OM.PC] Q24H - Assessment/Plan Last 24 Hours: My Active Orders 05/30/18 Pelvis 1V or 2V [CR] Stat 05/30/18 14:06 Urinary Catheter Assessment [RC] ASDIRECTED 05/30/18 14:15 Johnson Catheter Insertion [Insert Urinary Catheter] [OM.PC] Q24H
[2018-05-30] MEDS ORDERED: levETIRAcetam 500 MG/5 ML Solution ML 473 ml Bottle PO ONE (15:30)
== END 2018-05-30 16:20 ==
LOC: LL.ED 11:10
DX: S06.6X1A Traumatic subarachnoid hemorrhage with loss of consciousness of 30 minutes or less, initial encounter (principal); S06.5X1A Traumatic subdural hemorrhage with loss of consciousness of 30 minutes or less, initial encounter; S02.91XB Unspecified fracture of skull, initial encounter for open fracture; S02.118B Other fracture of occiput, unspecified side, initial encounter for open fracture; W18.30XA Fall on same level, unspecified, initial encounter; S51.011A Laceration without foreign body of right elbow, initial encounter; S50.02XA Contusion of left elbow, initial encounter; S20.229A Contusion of unspecified back wall of thorax, initial encounter; I11.0 Hypertensive heart disease with heart failure; I50.9 Heart failure, unspecified; E66.9 Obesity, unspecified; E11.9 Type 2 diabetes mellitus without complications; Z79.899 Other long term (current) drug therapy
CPT/HCPCS: 12002; 36415; 36430; 51702; 51703; 70450; 72125; 72170; 80053; 81001; 85025; 85610; 85730; 86900; 86901; 93010; 96372; 96374; 96375; 99284; 99285-25; A9270-GY; G0390; J2060; J2270; J2405; J2550; P9017